=== PATIENT | female | born 2000 | race Caucasian/White ===

== ENCOUNTER 2024-07-23 12:42 | Inpatient (IN) | payer BC, SELFPAY ==
--- NOTE | 2024-07-23 12:43 | MHC.CARE ---
T/W spoke to Luh Valdez (from [facility]) [phone] who called and reported that patient has been increasingly more depressed, hopeless and cannot commit to a safety plan. Luh reported that patient endorsed SI with a plan to drive off road. Patient reportedly had an SI attempt back in 2020 by overdosing on prescription medications. Patient is not currently on any medications. Luh stated that she will fax notes to CARE Team.
--- NOTE | 2024-07-23 12:53 | PC.NURSE ---
Addendum entered by Shantel Perkins 07/23/24 12:59: Pt reports she has been off of her psych medications for approximately 1 year Original Note: Shruti comes in today report SI with multiple plans such as cutting, driving her car off the road,or hitting herself until unconscious. Pt reports past SI attempts including an overdose. She reports there are specific triggers but declines elaborating on them. Pt is calm and cooperative, aware that she is on a S12. She denies any self harming behavior today but reports that she was unable to contract for safety in the health center at school. Offers no complaints at this time, pending med clearance and CARE team eval at this time
[2024-07-23 12:55] VITALS: BP 112/75; BP 115/66; PULSE 66; PULSE 67; RESP 18; TEMP 36.8; O2SAT 98; O2SAT 99; BMI 27.3
[2024-07-23 12:59] VITALS: RESP 16
--- NOTE | 2024-07-23 13:09 | ED.PSYCH ---
HPI - Psych General Chief Complaint: Psychiatric Symptoms Stated Complaint: SEC 12, SI, HEADACHE PER EMS Time Seen by Provider: 07/23/24 13:05 Source: patient and EMS Mode of arrival: EMS Limitations: no limitations History of Present Illness ED Provider: ENDER CERVANTES Narrative: 23 yo female with PMH of anxiety and depression from [facility] who has a therapist not on medications - has SI and is self harming by cutting. Her therapist referred her here. She notes SI and plans to harm herself and reports she is doing fine at [facility]. complaint: suicidal ideation and feels depressed Onset (ago): week(s) (2+) Duration: getting worse History of same: Yes Relieving factors: none Exacerbating factors: other Associated psychiatric symptoms: depression and suicidal ideation Details of plan: cutting, driving car off road, hitting herself in the head Related Data Home Medications ?Medication ?Instructions ?Recorded ?Confirmed No Known Home Meds 07/23/24 07/23/24 Allergies Allergy/AdvReac Type Severity Reaction Status Date / Time mussels Allergy Severe Anaphylaxis Verified 07/23/24 12:58 shellfish derived Allergy Severe Anaphylaxis Verified 07/23/24 12:58 shrimp Allergy Severe Anaphylaxis Verified 07/23/24 12:58 Review of Systems Review of Systems: Constitutional : No Fever, No Chills ENT/Mouth : No Ear Pain, No Nasal Congestion, No sore throat Eyes: No Eye Pain, No Swelling, No Redness Cardiovascular : No Chest Pain, No SOB Respiratory : No Cough, No Sputum, No Dyspnea Gastrointestinal : No Nausea, No Vomiting, No Diarrhea, No Hematochezia, No Melena Genitourinary : No Dysuria, No Urinary Frequency, No Hematuria Musculoskeletal : No Myalgias Skin : No Skin Lesions, No rash Neuro : No Weakness, No Numbness, No Paresthesias, No Dizziness, No Headache Psych : positive Anxiety, positive Depression, positive SI no HI All other systems reviewed and are negative PMFSH Past Medical History Attestation statement: The following information was validated with the patient. Source: old records reviewed Medical History Depression Social History Social History (Updated 07/23/24 @ 13:33 by Linda Flores DO) Patient Tobacco Use Status: Never used Tobacco Smoked in Last 30 Days: No Use of substances other than those prescribed or required for medical reasons: No Advance Directives: No Advance Directives Information Provided: Yes Patient : No Physical Exam Vital Signs: Vital Signs: Last Vital Signs Temp 98.3 F 07/23/24 12:55 Pulse 66 07/23/24 12:55 Resp 16 07/23/24 12:59 BP 115/66 07/23/24 12:55 Pulse Ox 98 07/23/24 12:55 O2 Del Method Room Air 07/23/24 12:55 BMI result Body Mass Index 27.3 Appearance: Alert. Oriented X3. No acute distress. Eyes: Pupils equal, round and reactive to light. ENT: Pharynx normal. Neck: Normal inspection. Neck supple. CVS: Normal heart rate and rhythm. Pulses normal. Respiratory: No respiratory distress. Breath sounds normal. Abdomen: Soft and nontender. Skin: Skin warm and dry. Normal skin color. Normal skin turgor. Extremities: No lower extremity edema. No calf ttp linear abrasions to R arm and L leg - superficial abrasions Neuro: Oriented X 3. No motor deficit. No sensory deficit. CN2-12 intact Medical Decision Making Medical Decision Making [facility] Narrative: 23 yo female with PMH of anxiety and depression here with c/o and SI with many plans to harm herself. She has no medical concerns or complaints. Labs and refer to CARE team. Differential Diagnosis Differential Diagnoses: The differential diagnosis associated with the presentation includes SI, depression, anxiety Admission/Observation Consideration of admission/observation: Escalation of care including admission/observation considered physician observation started at 135pm pending CARE team Consult Healthcare Provider Management of the patient was discussed with: Behavioral Health Provider Lab Data [facility] Lab Attestation statement: I reviewed the patient's lab results. 07/23/24 13:24 07/23/24 13:24 Labs: Lab Results 07/23/24 07/23/24 Range/Units 13:17 13:24 WBC 6.6 (4.8-10.8) X10*3/uL RBC 4.35 (4.20-5.50) X10*6/uL Hgb 13.0 (12.0-16.0) g/dl Hct 38.8 (37.0-47.0) % MCV 89.2 (80.0-98.0) fL MCH 29.9 (27.0-33.0) pg MCHC 33.5 (31.0-35.0) g/dl RDW 13.3 (11.0-16.0) % Plt Count 242 (160-400) X10*3/uL MPV 12.9 H (9.4-12.3) fL Immature Gran % (Auto) 0.5 H (0.0-0.4) % Neut % (Auto) 50.4 (45-73) % Lymph % (Auto) 39.6 (20-40) % [place] % (Auto) 6.5 (2-11) % Eos % (Auto) 1.8 (0-4) % Baso % (Auto) 1.2 (0-2) % Lymph # (Auto) 2.6 (1.2-4.9) X10*3/uL [place] # (Auto) 0.4 (0.1-1.2) X10*3/uL Eos # (Auto) 0.1 (0.0-0.4) X10*3/uL Baso # (Auto) 0.1 (0.0-0.2) X10*3/uL Abs Immat Gran (auto) 0.03 (0.00-0.03) X10*3/uL Absolute Neuts (auto) 3.3 (2.0-8.3) x10*3/uL Absolute Nucleated RBC 0.000 (0.0-0.012) X10*3/uL Nucleated RBC % (auto) 0.0 (0.0-0.2) /100WBC Sodium 139 (135-145) mmol/L Potassium 4.6 (3.3-5.1) mmol/L Chloride 106 (96-108) mmol/L Carbon Dioxide 26 (22-29) mmol/L Anion Gap 12 (12-20) BUN 10 (9-16) mg/dL Creatinine 0.69 (0.5-1.4) mg/dL Estim Creat Clear Calc 107.3 Estimated GFR > 60 Random Glucose 91 (60-115) mg/dL Calcium 9.9 (8.4-10.2) mg/dL Total Bilirubin 0.3 (0.0-1.0) mg/dL AST 23 (5-31) U/L ALT 16 (0-31) U/L Alkaline Phosphatase 65 (39-117) U/L Total Protein 7.3 (6.5-8.0) g/dL Albumin 4.4 (3.5-5.0) g/dL Urine Color Yellow Urine Appearance Clear Urine pH 7.0 (5.0-9.0) Ur Specific [place] 1.010 (1.005-1.025) Urine Protein Negative (Neg-Trace) mg/dL Urine Glucose (UA) Negative (Negative) mg/dL Urine Ketones Negative (Negative) mg/dL Urine Blood Negative (Negative) Urine Nitrite Negative (Negative) Ur Leukocyte Esterase Negative (Negative) Urine Test NEGATIVE (NEGATIVE) Urine Opiates Screen Not Detected (Not Detect) Ur Buprenorphine Scrn Not Detected (Not Detect) ng/mL Ur Oxycodone Screen Not Detected (Not Detect) ng/mL Urine Methadone Screen Not Detected (Not Detect) ng/mL Urine Fentanyl Screen Not Detected (Not Detect) Ur Barbiturates Screen Not Detected (Not Detect) Ur Phencyclidine Scrn Not Detected (Not Detect) Ur Amphetamines Screen Not Detected (Not Detect) U Benzodiazepines Scrn Not Detected (Not Detect) Urine Cocaine Screen Not Detected (Not Detect) U Marijuana (THC) Screen Not Detected (Not Detect) Ethyl Alcohol < 10 mg/dL Independent Historian Clinical information obtained from an independent historian. History obtained from or confirmed by: EMS Discharge Plan Discharge Clinical Impression: Suicidal ideation Patient Disposition: Still a Patient Prescriptions: No Action No Known Home Meds Interventions: [place]-Suicide Risk Severity Scale Last Done: 07/23/24 13:00 Print Language: Occitan
[2024-07-23 13:33] LABS: MANUAL DIFF FLAG NO
[2024-07-23 13:35] LABS: Basophils Absolute Auto 0.1 X10*3/uL (0.0-0.2); Basophils Percent Auto 1.2 % (0-2); Eosinophils Absolute Auto 0.1 X10*3/uL (0.0-0.4); Eosinophils Percent Auto 1.8 % (0-4); Hematocrit 38.8 % (37.0-47.0); Imm Gran Abs Auto 0.03 X10*3/uL (0.00-0.03); Imm Gran Pct Auto 0.5 % (0.0-0.4); Lymphocytes Absolute Auto 2.6 X10*3/uL (1.2-4.9); Lymphocytes Percent Auto 39.6 % (20-40); Mean Corpuscular HGB Conc 33.5 g/dl (31.0-35.0); Mean Corpuscular Hemoglobin 29.9 pg (27.0-33.0); Mean Corpuscular Volume 89.2 fL (80.0-98.0); Mean Platelet Volume 12.9 fL (9.4-12.3); Monocytes Absolute Auto 0.4 X10*3/uL (0.1-1.2); Monocytes Percent Auto 6.5 % (2-11); Neutrophils Absolute Auto 3.3 x10*3/uL (2.0-8.3); Neutrophils Percent Auto 50.4 % (45-73); Platelet Count 242 X10*3/uL (160-400); Red Blood Count 4.35 X10*6/uL (4.20-5.50); Red Cell Distribution Width 13.3 % (11.0-16.0); White Blood Count 6.6 X10*3/uL (4.8-10.8)
[2024-07-23 13:38] LABS: Appearance Urine Clear; Color Urine Yellow; Glucose Urine UA Negative (Negative); Leukocyte Esterase Urine Negative (Negative); Nitrite Urine Negative (Negative); Urine Blood Negative (Negative); Urine Ketones Negative (Negative); Urine Protein Negative (Neg-Trace)
[2024-07-23 13:39] LABS: UPreg QC Valid YES; Urine Pregnancy NEGATIVE (NEGATIVE)
[2024-07-23 13:47] LABS: Amphetamine Screen Urine Not Detected (Not Detect); Barbiturates, Urine Not Detected (Not Detect); Benzodiazepines Screen Urine Not Detected (Not Detect); Buprenorphine Scr Not Detected (Not Detect); Cannabinoid Screen Urine Not Detected (Not Detect); Cocaine Screen Urine Not Detected (Not Detect); Fentanyl, urine Not Detected (Not Detect); Methadone Screen, Urine Not Detected (Not Detect); Opiate Screen Urine Not Detected (Not Detect); Oxycodone Screen Urine Not Detected (Not Detect); Phencyclidine Screen Urine Not Detected (Not Detect)
[2024-07-23 13:52] LABS: Alanine Aminotransferase 16 U/L (0-31); Albumin Level 4.4 g/dL (3.5-5.0); Anion Gap 12 (12-20); Aspartate Amino Transferase 23 U/L (5-31); Bilirubin Total 0.3 mg/dL (0.0-1.0); Blood Urea Nitrogen 10 mg/dL (9-16); Calcium 9.9 mg/dL (8.4-10.2); Carbon Dioxide 26 mmol/L (22-29); Chloride 106 mmol/L (96-108); Creatinine Clr Calc Pharmacy 107.3; Estimated Glomerular Filt Rate > 60; Ethanol < 10 mg/dL; Glucose Random 91 mg/dL (60-115); Potassium 4.6 mmol/L (3.3-5.1); Sodium 139 mmol/L (135-145); Total Protein 7.3 g/dL (6.5-8.0)
[2024-07-23 14:07] LABS: Alkaline Phosphatase 65 U/L (39-117)
--- NOTE | 2024-07-23 14:28 | MHC.CARE ---
Per Luh Valdez with [facility], , available before 4p. Student has [facility]'s student insurance [employer] policy [id number].
--- NOTE | 2024-07-23 18:16 | PC.NURSE ---
Pts boyfriend visiting at bedside. ISELA Dugan reminded patient to maintain appropirate boundaries as patient was sitting on bed with bf. Pt moved to chair and bf sat on bed. Both parties respectful and agreeable
[2024-07-23 19:32] VITALS: BP 115/61; PULSE 76; RESP 18; TEMP 36.9; O2SAT 99
--- NOTE | 2024-07-23 21:53 | PC.NURSE ---
Nurse to nurse given to m5 RN
[2024-07-23] MEDS: Acetaminophen 325 MG TABLET 650 MG PO (23:55)
--- NOTE | 2024-07-24 06:27 | PC.ADMIT ---
Shruti is a 23 year old female college who was admitted to at 2245 on 07/23/24. She is a CV on 15 minute checks. She reported SI, and has self injurious behaviors. Skin/safety check revealed 5 superficial scabbed cuts on her left upper arm, and 9 superficial scabbed cuts on the lateral aspect of her upper right thigh. Shruti reports she cut herself using a shaving razor. Shruti overdosed on prescribed medication in 2020. She has no home medications, and reports she has been off medications for 1 year. There is an addiction consult pending regarding her alcohol consumption. Shruti reports that while she drinks less than monthly, when she does drink, she will binge over 10 drinks. She is a non-smoker. She has refused a flu vaccine. Shruti reports self neglect and states she does not eat properly/enough. She seems to have limited insight, but does state that she wants to 'get better.' She is pleasant, nervous, shy, and quiet during admission.
[2024-07-24 07:00] VITALS: BMI 29.9
[2024-07-24 08:00] VITALS: BP 114/65; PULSE 66; RESP 16; TEMP 35.9; O2SAT 99
[2024-07-24] MEDS: Acetaminophen 325 MG TABLET 650 MG PO ×2 (08:25→18:21)
[2024-07-24] MEDS: hydrOXYzine HCL 25 MG TABLET PO (08:28)
--- NOTE | 2024-07-24 12:24 | P.HPPS_ITS ---
HPI Date of Service: 07/24/24 Chief Complaint: SI Sources of Information: patient interviewed, chart reviewed and crisis/core team assessment reviewed HPI Subjective Notes: Goodman Warning and Conditional Voluntary Narrative: Patient is a 23-year-old female with history of MDD, MARY ALICE and PTSD who presented to [facility] via ambulance from [facility] due to suicidal ideation secondary to life stressors. Per crisis report, patient endorsed suicidal ideation with plan to her therapist. Patient had several plans such as, driving off the road, cutting herself or hitting herself until she is unconscious. Patient has been experiencing increased anxiety and depression; reports feeling numb all the time , crying at times and does not know why. Patient reports doing well in school however. not achieving the grades that she would like. poor sleep/poor appetite. Patient reported she recently started cutting herself again which she had not done since she was a teenager. Patient sees her outpatient therapist every 2 weeks. Denies HI/VH/AH. History of attempted suicide in 2020 by overdosing on her prescription medication; did not go to the hospital after that event. Denies substance use. Utox negative. Care team obtained collateral from patient's mother, who reported, pt had moved to [place] from [facility] approximately 4 years ago. Mother reports within the past year patient has been making herself pass out due to anxiety. History of being bullied when she was 15 years old and began cutting herself. No history of psychiatric admissions. During admission assessment, patient presents alert and oriented x3. Calm and cooperative. Patient reports feeling depressed and anxious ; patient stated, I'm having feelings of wanting to hurt myself. I need to feel something. I was cutting for 2 days in a row and the 3rd day I came here . Patient reports she has been feeling numb for the past few weeks and she can not think of a precipitant. She reports suicidal ideation with plan to overdose on medications. Sees therapist through [facility] but is currently not on any psychiatric medications. Patient reports history of taking something for anxiety when she was 20 but can not recall name of medication. However, in 2020 she did overdose on this medication and woke up the next morning but did not tell anyone. Patient reports that she is happy she did not from that attempt. History of cutting from the ages of [age]; Patient reports superficial cuts and never required stitches. She states that she does not go to the dining [employer] more than once a day due to feeling anxious from being around people. She is requesting to be started on medications to help with her mood. Discussed Prozac; risks/benefits reviewed; patient agreed to trial. Past Psychiatric History: No history of inpatient psychiatric admissions. History of superficial cutting. history of suicide attempt in 2020 via overdose on her prescription medication. therapist through [facility]. Medical Evaluation Reviewed: Yes [facility] Medical History Depression Family History: mother: depression sister: depression Social History: lives on campus in a single dorm room at [facility]. Full-time student, economics major. Single. No kids. [place] Substance History: Denies. Trauma History: Yes Diagnostics Vital Signs (24Hr): Vital Signs - 24 hr 07/23/24 12:55 07/23/24 12:59 07/23/24 19:32 Temperature 98.3 F 98.4 F Pulse Rate 66 76 Respiratory Rate 18 16 18 Blood Pressure 115/66 115/61 Pulse Oximetry 98 99 Oxygen Delivery Method Room Air Room Air 07/24/24 08:00 Temperature 96.6 F L Pulse Rate 66 Respiratory Rate 16 Blood Pressure 114/65 Pulse Oximetry 99 Oxygen Delivery Method Room Air BMI result Body Mass Index 27.3 Labs 07/23/24 13:24 07/24/24 11:26 Labs: Laboratory Results - last 48 hr 07/23/24 07/23/24 13:17 13:24 WBC 6.6 RBC 4.35 Hgb 13.0 Hct 38.8 MCV 89.2 MCH 29.9 MCHC 33.5 RDW 13.3 Plt Count 242 MPV 12.9 H Immature Gran % (Auto) 0.5 H Neut % (Auto) 50.4 Lymph % (Auto) 39.6 [place]w % (Auto) 6.5 Eos % (Auto) 1.8 Baso % (Auto) 1.2 Lymph # (Auto) 2.6 [place]th[place]omew # (Auto) 0.4 Eos # (Auto) 0.1 Baso # (Auto) 0.1 Abs Immat Gran (auto) 0.03 Absolute Neuts (auto) 3.3 Absolute Nucleated RBC 0.000 Nucleated RBC % (auto) 0.0 Sodium 139 Potassium 4.6 Chloride 106 Carbon Dioxide 26 Anion Gap 12 BUN 10 Creatinine 0.69 Estim Creat Clear Calc 107.3 Estimated GFR > 60 Random Glucose 91 Calcium 9.9 Total Bilirubin 0.3 AST 23 ALT 16 Alkaline Phosphatase 65 Total Protein 7.3 Albumin 4.4 Urine Color Yellow Urine Appearance Clear Urine pH 7.0 Ur Specific [place] 1.010 Urine Protein Negative Urine Glucose (UA) Negative Urine Ketones Negative Urine Blood Negative Urine Nitrite Negative Ur Leukocyte Esterase Negative Urine Test NEGATIVE Urine Opiates Screen Not Detected Ur Buprenorphine Scrn Not Detected Ur Oxycodone Screen Not Detected Urine Methadone Screen Not Detected Urine Fentanyl Screen Not Detected Ur Barbiturates Screen Not Detected Ur Phencyclidine Scrn Not Detected Ur Amphetamines Screen Not Detected U Benzodiazepines Scrn Not Detected Urine Cocaine Screen Not Detected U Marijuana (THC) Screen Not Detected Ethyl Alcohol < 10 Meds/Allergies Meds Home Medications ?Medication ?Instructions ?Recorded ?Confirmed ?Type No Known Home Meds 07/23/24 07/23/24 History Allergies Allergies Allergy/AdvReac Type Severity Reaction Status Date / Time mussels Allergy Severe Anaphylaxis Verified 07/23/24 12:58 shellfish derived Allergy Severe Anaphylaxis Verified 07/23/24 12:58 shrimp Allergy Severe Anaphylaxis Verified 07/23/24 12:58 Mental Status Exam Mental Status Exam Narrative: Pt is alert and oriented; behavior is cooperative, calm; dressed in casual attire; mood is described as depressed and numb ; eye contact appropriate; Speech is normal rate, low volume and not pressured; thought process is organized and goal directed; Thought content is on tx; otherwise pertinent to relevant topics and without any delusional content, paranoid ideations or grandiosity; denies HI/VH/AH. patient reports suicidal ideation with plan to overdose on medication. Assessment & Plan Assessment & Plan (1) MDD (major depressive disorder), recurrent episode, severe: Status: Acute Code(s): F33.2 - Major depressive disorder, recurrent severe without psychotic features (2) MARY ALICE (generalized anxiety disorder): Status: Acute Code(s): F41.1 - Generalized anxiety disorder (3) PTSD (post-traumatic stress disorder): Status: Acute Code(s): F43.10 - Post-traumatic stress disorder, unspecified Plan Patient is a 23-year-old female with history of MDD, MARY ALICE and PTSD who presented to [facility] via ambulance from [facility] due to suicidal ideation secondary to life stressors. Plan: CV 15 minute safety checks obtain collateral encourage groups start: Prozac 20mg PO daily referral to outpatient psychiatric prescriber discharge planning Patient educated on: diagnosis, medication risk/benefits and therapeutic strategies Reason for continued inpatient stay Substantial Risk for: harm to self and med/psych decompensation Statement Statement: I have reviewed the history and physical and performed a pertinent examination on my patient. No changes have occurred unless specified. If the History and Physical was not performed prior to admission, the Hospitalist's service will be consulted for completing the admission physical. Time Spent With Patient Time: Total time managing care of this patient today _60___ minutes.
[2024-07-24 12:27] LABS: Alanine Aminotransferase 20 U/L (0-31); Albumin Level 4.3 g/dL (3.5-5.0); Alkaline Phosphatase 68 U/L (39-117); Anion Gap 11 (12-20); Aspartate Amino Transferase 27 U/L (5-31); Bilirubin Total 0.2 mg/dL (0.0-1.0); Blood Urea Nitrogen 13 mg/dL (9-16); Calcium 10.2 mg/dL (8.4-10.2); Carbon Dioxide 26 mmol/L (22-29); Chloride 106 mmol/L (96-108); Cholesterol 151 mg/dL (<200); Creatinine Clr Calc Pharmacy 102.8; Estimated Glomerular Filt Rate > 60; Glucose Fasting 98 mg/dL (60-99); HDL Cholesterol 51 mg/dL (>40); LDL Cholesterol Calculated 82 mg/dL (<100); Potassium 4.1 mmol/L (3.3-5.1); Sodium 139 mmol/L (135-145); Triglycerides 94 mg/dL (<150)
[2024-07-24 12:41] LABS: Thyroid Stimulating Hormone 1.24 uIU/mL (0.32-4.0)
[2024-07-24] MEDS: FLUoxetine HCl 20 MG CAPSULE PO (16:02)
[2024-07-24 20:00] VITALS: BP 124/64; PULSE 74; TEMP 36.8; O2SAT 99
[2024-07-25 08:00] VITALS: BP 114/62; PULSE 73; RESP 16; TEMP 37.3; O2SAT 99
[2024-07-25] MEDS: FLUoxetine HCl 20 MG CAPSULE PO (08:26)
[2024-07-25] MEDS: hydrOXYzine HCL 25 MG TABLET PO (08:37)
[2024-07-25] MEDS: OXcarbazepine 300 MG TABLET PO ×2 (12:21→21:42)
--- NOTE | 2024-07-25 12:49 | HO.PSYCHPN ---
Subjective Subjective Date of Service: 07/25/24 Reason For Visit: SI Subjective Notes: Conditional Voluntary Healthcare Proxy: No Guardianship: No Medical Problems Affecting Mental Status: No Interim History: Reports no anxiety yesterday, today however feels an increase in anxiety, poor sleep, increase in dreaming. Describes sx of sleep paralysis last night. Several issues of concern. Partner, Darron is very concerned, pt reports his niece suicided last year and his uncle suicided a few years ago. He is concerned for her safety. She denies active SI however is very anxious about her grades (has a B average she reports). 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 She is also concerned about her status of immigration. She will attend court in 2024 to work on this issue. Describes three years of psychotherapy, 2 months in person, before this on line. Med trial at age 20 with ?antidepressants and extreme mood reactions. Before meds she reports feeling numb, after meds difficult to regulate. Hx of OD on medds as well. Initially she finds meds make her calm, then the after effects make her angry. Reports hx of panic, reports conflict with her younger sister. Discussed mood stabilizer trial (Prozac initiated 07/24). She is in agreement. Discussed concerns about family and how her admission will be interpreted by the family. Medication Compliance: Yes Side effects from medications: No Attending Groups: No Review of Systems Acute medical concerns: No Review of Systems Review of Systems denies Mental Status Exam Mental Status Exam Patient Appearance: Appropriate Patient Orientation: Person, Place, Time and Situation Level of Consciousness: Alert Patient Behavior: Appropriate, Talkative, Cooperative and Good Eye Contact Mood Description: Depressed, Anxious and Apprehensive Affect Description: Anxious Patient Cognition Impaired: No Ability to Follow Directions: Good Speech Pattern: Spontaneous Speech Memory Description: Intact Hallucinations: None Delusions: Not Present Thought Process: Rumination Thought Content: positive for Circumstantial, positive for Perseveration and positive for Suicidal Ideation Depressive Symptoms: Increased Anxiety, Insomnia, Difficulty Sleeping, Thoughts of /Suicide and Low Self Esteem Abnormal Motor Activity Signs and Symptoms: Restlessness Judgement: Fair Diagnostics Vital Signs (24Hr): Vital Signs - 24 hr 07/24/24 20:00 07/25/24 08:00 Temperature 98.3 F 99.1 F Pulse Rate 74 73 Respiratory Rate 16 Blood Pressure 124/64 114/62 Pulse Oximetry 99 99 Oxygen Delivery Method Room Air Room Air BMI result Body Mass Index 29.9 Labs 07/23/24 13:24 07/24/24 11:26 Labs: Laboratory Results - last 48 hr 07/23/24 07/23/24 07/24/24 13:17 13:24 11:26 WBC 6.6 RBC 4.35 Hgb 13.0 Hct 38.8 MCV 89.2 MCH 29.9 MCHC 33.5 RDW 13.3 Plt Count 242 MPV 12.9 H Immature Gran % (Auto) 0.5 H Neut % (Auto) 50.4 Lymph % (Auto) 39.6 Ector % (Auto) 6.5 Eos % (Auto) 1.8 Baso % (Auto) 1.2 Lymph # (Auto) 2.6 Ector # (Auto) 0.4 Eos # (Auto) 0.1 Baso # (Auto) 0.1 Abs Immat Gran (auto) 0.03 Absolute Neuts (auto) 3.3 Absolute Nucleated RBC 0.000 Nucleated RBC % (auto) 0.0 Sodium 139 139 Potassium 4.6 4.1 Chloride 106 106 Carbon Dioxide 26 26 Anion Gap 12 11 L BUN 10 13 Creatinine 0.69 0.72 Estim Creat Clear Calc 107.3 102.8 Estimated GFR > 60 > 60 Random Glucose 91 Fasting Glucose 98 Calcium 9.9 10.2 Total Bilirubin 0.3 0.2 AST 23 27 ALT 16 20 Alkaline Phosphatase 65 68 Total Protein 7.3 7.0 Albumin 4.4 4.3 Triglycerides 94 Cholesterol 151 LDL Cholesterol, Calc 82 HDL Cholesterol 51 TSH 1.24 Urine Color Yellow Urine Appearance Clear Urine pH 7.0 Ur Specific [place] 1.010 Urine Protein Negative Urine Glucose (UA) Negative Urine Ketones Negative Urine Blood Negative Urine Nitrite Negative Ur Leukocyte Esterase Negative Urine Test NEGATIVE Urine Opiates Screen Not Detected Ur Buprenorphine Scrn Not Detected Ur Oxycodone Screen Not Detected Urine Methadone Screen Not Detected Urine Fentanyl Screen Not Detected Ur Barbiturates Screen Not Detected Ur Phencyclidine Scrn Not Detected Ur Amphetamines Screen Not Detected U Benzodiazepines Scrn Not Detected Urine Cocaine Screen Not Detected U Marijuana (THC) Screen Not Detected Ethyl Alcohol < 10 Medications Medications Current Medications Acetaminophen (Acetaminophen 325 Mg Tablet) 650 mg PO Q6H PRN PRN Reason: Headache/Pain Mild Scale (1-3) Last Admin: 07/24/24 18:21 Dose: 650 mg Al Hydroxide/Mg Hydroxide (Magnesium Hydrox/Alum Hydrox 30 Ml Oral.Susp) 30 ml PO Q6H PRN PRN Reason: Heartburn/Nausea Fluoxetine HCl (Fluoxetine Hcl 20 Mg Capsule) 20 mg PO DAILY [facility] Last Admin: 07/25/24 08:26 Dose: 20 mg Hydroxyzine HCl (Hydroxyzine Hcl 25 Mg Tablet) 25 mg PO Q6H PRN PRN Reason: Anxiety Last Admin: 07/25/24 08:37 Dose: 25 mg Lorazepam (Lorazepam 0.5 Mg Tablet) 0.5 mg PO Q8H PRN PRN Reason: Anxiety Magnesium Hydroxide (Milk Of Magnesia 30 Ml Oral.Susp) 30 ml PO DAILY PRN PRN Reason: Constipation Melatonin (Melatonin 3 Mg Tablet) 3 mg PO BEDTIME PRN PRN Reason: Insomnia Nicotine Polacrilex (Nicotine Polacrilex 2 Mg Gum) 2 mg BUCCAL Q2H PRN PRN Reason: Nicotine Cravings Oxcarbazepine (Oxcarbazepine 300 Mg Tablet) 300 mg PO BID [facility] Last Admin: 07/25/24 12:21 Dose: 300 mg Trazodone HCl (Trazodone Hcl 50 Mg Tablet) 50 mg PO BEDTIME MRX1 PRN PRN Reason: Insomnia Allergies Allergies Allergy/AdvReac Type Severity Reaction Status Date / Time mussels Allergy Severe Anaphylaxis Verified 07/23/24 12:58 shellfish derived Allergy Severe Anaphylaxis Verified 07/23/24 12:58 shrimp Allergy Severe Anaphylaxis Verified 07/23/24 12:58 Assessment & Plan Assessment & Plan (1) MDD (major depressive disorder), recurrent episode, severe: Status: Acute Code(s): F33.2 - Major depressive disorder, recurrent severe without psychotic features (2) MARY ALICE (generalized anxiety disorder): Status: Acute Code(s): F41.1 - Generalized anxiety disorder (3) PTSD (post-traumatic stress disorder): Status: Acute Code(s): F43.10 - Post-traumatic stress disorder, unspecified Plan Patient is a 23-year-old female with history of MDD, MARY ALICE and PTSD who presented to [facility] via ambulance from [facility] due to suicidal ideation secondary to life stressors. Plan: CV 15 minute safety checks obtain collateral encourage groups start: Prozac 20mg PO daily referral to outpatient psychiatric prescriber discharge planning 07/25/24: Trileptal 300 mg bid Lorazepam prn for panic Reason for continued inpatient stay Substantial Risk for: rapid decompensation Time Spent With Patient Time: Total time managing care of this patient today ____ minutes.
[2024-07-25 20:00] VITALS: BP 118/70; PULSE 72; RESP 16; TEMP 36.2; O2SAT 99
[2024-07-26 08:57] VITALS: BP 114/57; PULSE 70; RESP 16; TEMP 37.1; O2SAT 98
[2024-07-26] MEDS: FLUoxetine HCl 20 MG CAPSULE PO (09:44)
[2024-07-26] MEDS: OXcarbazepine 300 MG TABLET PO ×2 (09:44→20:55)
[2024-07-26] MEDS: Acetaminophen 325 MG TABLET 650 MG PO (10:44)
--- NOTE | 2024-07-26 16:47 | HO.PSYCHPN ---
Subjective Subjective Date of Service: 07/26/24 Reason For Visit: SI Subjective Notes: Conditional Voluntary Healthcare Proxy: No Guardianship: No Medical Problems Affecting Mental Status: No Interim History: 23 yo from [place] [facility] with suicidal thinking doing a bit better on trileptal and fluoxetine- slept- energy still low- close visits with family who wait outside - had to wait to see patient between visitors ( ? bf male visitor) nursing reports in bed in pm less engaged than during day anxious and slept - there is alot of actively psychotic patients on floor and pt first psychiatric hospitalization which could explain retreat to room in pms Medication Compliance: Yes Side effects from medications: No Attending Groups: Intermittent Review of Systems Acute medical concerns: No Medical Review of Systems: unchanged Mental Status Exam Mental Status Exam Patient Appearance: Well Grooomed (though dressed in gonzález despite family visiting could get clothes?) Patient Orientation: Person, Place, Time and Situation Level of Consciousness: Awake Patient Behavior: Appropriate, Guarded (slightly), Cooperative and Good Eye Contact Mood Description: Anxious Affect Description: Blunted Patient Cognition Impaired: No Ability to Follow Directions: Good Speech Pattern: Clear Hallucinations: None Delusions: Not Present Thought Process: Intact Thought Content: positive for Goal Oriented and positive for Suicidal Ideation (decreased on current medication combo) Judgement: Fair Diagnostics Vital Signs (24Hr): Vital Signs - 24 hr 07/25/24 20:00 07/26/24 08:57 Temperature 97.2 F 98.7 F Pulse Rate 72 70 Respiratory Rate 16 16 Blood Pressure 118/70 114/57 L Pulse Oximetry 99 98 Oxygen Delivery Method Room Air Room Air BMI result Body Mass Index 29.9 Labs 07/23/24 13:24 07/24/24 11:26 Medications Medications Current Medications Acetaminophen (Acetaminophen 325 Mg Tablet) 650 mg PO Q6H PRN PRN Reason: Headache/Pain Mild Scale (1-3) Last Admin: 07/26/24 10:44 Dose: 650 mg Al Hydroxide/Mg Hydroxide (Magnesium Hydrox/Alum Hydrox 30 Ml Oral.Susp) 30 ml PO Q6H PRN PRN Reason: Heartburn/Nausea Fluoxetine HCl (Fluoxetine Hcl 20 Mg Capsule) 20 mg PO DAILY [facility] Last Admin: 07/26/24 09:44 Dose: 20 mg Hydroxyzine HCl (Hydroxyzine Hcl 25 Mg Tablet) 25 mg PO Q6H PRN PRN Reason: Anxiety Last Admin: 07/25/24 08:37 Dose: 25 mg Lorazepam (Lorazepam 0.5 Mg Tablet) 0.5 mg PO Q8H PRN PRN Reason: Anxiety Magnesium Hydroxide (Milk Of Magnesia 30 Ml Oral.Susp) 30 ml PO DAILY PRN PRN Reason: Constipation Melatonin (Melatonin 3 Mg Tablet) 3 mg PO BEDTIME PRN PRN Reason: Insomnia Nicotine Polacrilex (Nicotine Polacrilex 2 Mg Gum) 2 mg BUCCAL Q2H PRN PRN Reason: Nicotine Cravings Oxcarbazepine (Oxcarbazepine 300 Mg Tablet) 300 mg PO BID [facility] Last Admin: 07/26/24 09:44 Dose: 300 mg Trazodone HCl (Trazodone Hcl 50 Mg Tablet) 50 mg PO BEDTIME MRX1 PRN PRN Reason: Insomnia Allergies Allergies Allergy/AdvReac Type Severity Reaction Status Date / Time mussels Allergy Severe Anaphylaxis Verified 07/23/24 12:58 shellfish derived Allergy Severe Anaphylaxis Verified 07/23/24 12:58 shrimp Allergy Severe Anaphylaxis Verified 07/23/24 12:58 Assessment & Plan Assessment & Plan (1) MDD (major depressive disorder), recurrent episode, severe: Status: Acute Code(s): F33.2 - Major depressive disorder, recurrent severe without psychotic features (2) MARY ALICE (generalized anxiety disorder): Status: Acute Code(s): F41.1 - Generalized anxiety disorder (3) PTSD (post-traumatic stress disorder): Status: Acute Code(s): F43.10 - Post-traumatic stress disorder, unspecified Plan Patient is a 23-year-old female with history of MDD, MARY ALICE and PTSD who presented to [facility] via ambulance from [facility] due to suicidal ideation secondary to life stressors. Plan: CV 15 minute safety checks obtain collateral encourage groups start: Prozac 20mg PO daily referral to outpatient psychiatric prescriber discharge planning 07/25/24: Trileptal 300 mg bid Lorazepam prn for panic 07/26/24 not having panic- feels trileptal helping no side effects- understands it is a mood stabilizer- Patient educated on: medication risk/benefits and therapeutic strategies Informed Consent: understands and further education needed Reason for continued inpatient stay Substantial Risk for: harm to self and rapid decompensation Time Spent With Patient Time: Total time managing care of this patient today ____ minutes.
[2024-07-26 20:00] VITALS: BP 115/67; PULSE 76; RESP 16; TEMP 37.2; O2SAT 99
[2024-07-26] MEDS: traZODone HCL 50 MG TABLET PO (20:55)
[2024-07-27 08:41] VITALS: BP 122/63; PULSE 62; RESP 16; TEMP 37.3; O2SAT 99
[2024-07-27] MEDS: OXcarbazepine 300 MG TABLET PO ×2 (09:28→21:37)
[2024-07-27] MEDS: FLUoxetine HCl 20 MG CAPSULE PO (09:28)
--- NOTE | 2024-07-27 12:04 | HO.PSYCHPN ---
Subjective Subjective Date of Service: 07/27/24 Reason For Visit: SI Subjective Notes: Conditional Voluntary Healthcare Proxy: No Guardianship: No Medical Problems Affecting Mental Status: No Interim History: 23 yo continues with family visits, feels improving day by day- no si today nor sib thoughts- Slept, finding mood stabilizer helpful - nursing report- taking medications and I noted from prior pt in room due to other patients agitated behaviors- (not directed at pt but certainly intimidating) Reports has counselor at [facility] but no prescriber- Medication Compliance: Yes Side effects from medications: No Attending Groups: Intermittent Review of Systems Acute medical concerns: No Medical Review of Systems: unchanged Mental Status Exam Mental Status Exam Patient Appearance: Well Grooomed (but again still in gonzález?) Patient Orientation: Person, Place, Time and Situation Level of Consciousness: Awake Patient Behavior: Appropriate, Cooperative and Good Eye Contact Mood Description: Apprehensive (more cautious) Patient Cognition Impaired: No Ability to Follow Directions: Good Speech Pattern: Clear Hallucinations: None Delusions: Not Present Thought Process: Intact and Goal Oriented Thought Content: positive for Suicidal Ideation (decreased - none today !) Depressive Symptoms: Increased Anxiety (improving on trileptal) and Unhappiness Judgement: Fair Diagnostics Vital Signs (24Hr): Vital Signs - 24 hr 07/26/24 20:00 07/27/24 08:41 Temperature 98.9 F 99.1 F Pulse Rate 76 62 Respiratory Rate 16 16 Blood Pressure 115/67 122/63 Pulse Oximetry 99 99 Oxygen Delivery Method Room Air Room Air BMI result Body Mass Index 29.9 Labs 07/23/24 13:24 07/24/24 11:26 Labs: sodium 139 good to note on trileptal due to risk of hyponatremia Medications Medications Current Medications Acetaminophen (Acetaminophen 325 Mg Tablet) 650 mg PO Q6H PRN PRN Reason: Headache/Pain Mild Scale (1-3) Last Admin: 07/26/24 10:44 Dose: 650 mg Al Hydroxide/Mg Hydroxide (Magnesium Hydrox/Alum Hydrox 30 Ml Oral.Susp) 30 ml PO Q6H PRN PRN Reason: Heartburn/Nausea Fluoxetine HCl (Fluoxetine Hcl 20 Mg Capsule) 20 mg PO DAILY [facility] Last Admin: 07/27/24 09:28 Dose: 20 mg Hydroxyzine HCl (Hydroxyzine Hcl 25 Mg Tablet) 25 mg PO Q6H PRN PRN Reason: Anxiety Last Admin: 07/25/24 08:37 Dose: 25 mg Lorazepam (Lorazepam 0.5 Mg Tablet) 0.5 mg PO Q8H PRN PRN Reason: Anxiety Magnesium Hydroxide (Milk Of Magnesia 30 Ml Oral.Susp) 30 ml PO DAILY PRN PRN Reason: Constipation Melatonin (Melatonin 3 Mg Tablet) 3 mg PO BEDTIME PRN PRN Reason: Insomnia Nicotine Polacrilex (Nicotine Polacrilex 2 Mg Gum) 2 mg BUCCAL Q2H PRN PRN Reason: Nicotine Cravings Oxcarbazepine (Oxcarbazepine 300 Mg Tablet) 300 mg PO BID [facility] Last Admin: 07/27/24 09:28 Dose: 300 mg Trazodone HCl (Trazodone Hcl 50 Mg Tablet) 50 mg PO BEDTIME MRX1 [facility] Last Admin: 07/27/24 04:18 Dose: Not Given Allergies Allergies Allergy/AdvReac Type Severity Reaction Status Date / Time mussels Allergy Severe Anaphylaxis Verified 07/23/24 12:58 shellfish derived Allergy Severe Anaphylaxis Verified 07/23/24 12:58 shrimp Allergy Severe Anaphylaxis Verified 07/23/24 12:58 Assessment & Plan Assessment & Plan (1) MDD (major depressive disorder), recurrent episode, severe: Status: Acute Code(s): F33.2 - Major depressive disorder, recurrent severe without psychotic features (2) MARY ALICE (generalized anxiety disorder): Status: Acute Code(s): F41.1 - Generalized anxiety disorder (3) PTSD (post-traumatic stress disorder): Status: Acute Code(s): F43.10 - Post-traumatic stress disorder, unspecified Plan Patient is a 23-year-old female with history of MDD, MARY ALICE and PTSD who presented to [facility] via ambulance from [facility] due to suicidal ideation secondary to life stressors. Plan: CV 15 minute safety checks obtain collateral encourage groups start: Prozac 20mg PO daily referral to outpatient psychiatric prescriber discharge planning 07/25/24: Trileptal 300 mg bid Lorazepam prn for panic 07/26/24 not having panic- feels trileptal helping no side effects- understands it is a mood stabilizer- Patient educated on: medication risk/benefits and therapeutic strategies 07/27- continue current plan- tolerating medications- work on discharge planning upcoming week - Patient educated on: medication risk/benefits and therapeutic strategies Informed Consent: understands Reason for continued inpatient stay Substantial Risk for: rapid decompensation (needs dc planning ) Time Spent With Patient Time: Total time managing care of this patient today ____ minutes.
[2024-07-27 19:41] VITALS: BP 111/60; PULSE 70; RESP 16; TEMP 36.8; O2SAT 100
[2024-07-27] MEDS: traZODone HCL 50 MG TABLET PO (21:37)
[2024-07-28 08:00] VITALS: BP 121/62; PULSE 75; RESP 16; TEMP 36.8; O2SAT 99
[2024-07-28] MEDS: FLUoxetine HCl 20 MG CAPSULE PO (08:50)
[2024-07-28] MEDS: OXcarbazepine 300 MG TABLET PO ×2 (08:50→21:06)
[2024-07-28] MEDS: Acetaminophen 325 MG TABLET 650 MG PO (08:52)
--- NOTE | 2024-07-28 15:44 | HO.PSYCHPN ---
Subjective Subjective Date of Service: 07/28/24 Reason For Visit: SI Subjective Notes: Conditional Voluntary Healthcare Proxy: No Guardianship: No Medical Problems Affecting Mental Status: No Interim History: Denies SI,HI, AH, VH. Reviewed mom's visit, she cries because I am in hospital. Reports tension headache with relief from Tylenol, Discussed continuing to monitor this as her medicines may help relieve this (reports headache frequently prior to medication initiation). Hopes to have weekly therapy. Tolerating meds she reports, some brief sx nausea which has resolved. Discussed taking meds after food, never on an empty stomach, she agrees. Plans discharge for 07/30. Medication Compliance: Yes Side effects from medications: No Attending Groups: No Review of Systems Acute medical concerns: No Medical Review of Systems: unchanged Mental Status Exam Mental Status Exam Narrative: Alert, oriented. Speech is clear, articulate, soft. Well engaged in discussion. Clear regarding stressors and coping mechanisms. Affect is flat, mood apprehensive. No sx of thought dysregulation Denies DANAE,CELSO,DARÍO, VH Diagnostics Vital Signs (24Hr): Vital Signs - 24 hr 07/27/24 19:41 07/28/24 08:00 Temperature 98.2 F 98.2 F Pulse Rate 70 75 Respiratory Rate 16 16 Blood Pressure 111/60 121/62 Pulse Oximetry 100 99 Oxygen Delivery Method Room Air Room Air BMI result Body Mass Index 29.9 Labs 07/23/24 13:24 07/24/24 11:26 Medications Medications Current Medications Acetaminophen (Acetaminophen 325 Mg Tablet) 650 mg PO Q6H PRN PRN Reason: Headache/Pain Mild Scale (1-3) Last Admin: 07/28/24 08:52 Dose: 650 mg Al Hydroxide/Mg Hydroxide (Magnesium Hydrox/Alum Hydrox 30 Ml Oral.Susp) 30 ml PO Q6H PRN PRN Reason: Heartburn/Nausea Fluoxetine HCl (Fluoxetine Hcl 20 Mg Capsule) 20 mg PO DAILY [facility] Last Admin: 07/28/24 08:50 Dose: 20 mg Hydroxyzine HCl (Hydroxyzine Hcl 25 Mg Tablet) 25 mg PO Q6H PRN PRN Reason: Anxiety Last Admin: 07/25/24 08:37 Dose: 25 mg Lorazepam (Lorazepam 0.5 Mg Tablet) 0.5 mg PO Q8H PRN PRN Reason: Anxiety Magnesium Hydroxide (Milk Of Magnesia 30 Ml Oral.Susp) 30 ml PO DAILY PRN PRN Reason: Constipation Melatonin (Melatonin 3 Mg Tablet) 3 mg PO BEDTIME PRN PRN Reason: Insomnia Nicotine Polacrilex (Nicotine Polacrilex 2 Mg Gum) 2 mg BUCCAL Q2H PRN PRN Reason: Nicotine Cravings Oxcarbazepine (Oxcarbazepine 300 Mg Tablet) 300 mg PO BID [facility] Last Admin: 07/28/24 08:50 Dose: 300 mg Trazodone HCl (Trazodone Hcl 50 Mg Tablet) 50 mg PO BEDTIME MRX1 [facility] Last Admin: 07/28/24 01:49 Dose: Not Given Allergies Allergies Allergy/AdvReac Type Severity Reaction Status Date / Time mussels Allergy Severe Anaphylaxis Verified 07/23/24 12:58 shellfish derived Allergy Severe Anaphylaxis Verified 07/23/24 12:58 shrimp Allergy Severe Anaphylaxis Verified 07/23/24 12:58 Assessment & Plan Assessment & Plan (1) MDD (major depressive disorder), recurrent episode, severe: Status: Acute Code(s): F33.2 - Major depressive disorder, recurrent severe without psychotic features (2) MARY ALICE (generalized anxiety disorder): Status: Acute Code(s): F41.1 - Generalized anxiety disorder (3) PTSD (post-traumatic stress disorder): Status: Acute Code(s): F43.10 - Post-traumatic stress disorder, unspecified Plan Patient is a 23-year-old female with history of MDD, MARY ALICE and PTSD who presented to [facility] via ambulance from [facility] due to suicidal ideation secondary to life stressors. Plan: CV 15 minute safety checks obtain collateral encourage groups start: Prozac 20mg PO daily referral to outpatient psychiatric prescriber discharge planning 07/25/24: Trileptal 300 mg bid Lorazepam prn for panic 07/26/24 not having panic- feels trileptal helping no side effects- understands it is a mood stabilizer- Patient educated on: medication risk/benefits and therapeutic strategies 07/27- continue current plan- tolerating medications- work on discharge planning upcoming week - 07/28- meeting with pt and boyfriend on 07/29 discharge 07/30. Patient educated on: medication risk/benefits and therapeutic strategies Informed Consent: understands Reason for continued inpatient stay Substantial Risk for: rapid decompensation Time Spent With Patient Time: Total time managing care of this patient today ____ minutes.
[2024-07-28 20:00] VITALS: BP 120/60; PULSE 68; RESP 17; TEMP 36.8; O2SAT 98
[2024-07-28] MEDS: traZODone HCL 50 MG TABLET PO (21:06)
[2024-07-29 08:00] VITALS: BP 116/56; PULSE 69; RESP 18; TEMP 37.4; O2SAT 98
[2024-07-29] MEDS: OXcarbazepine 300 MG TABLET PO ×2 (08:31→21:20)
[2024-07-29] MEDS: FLUoxetine HCl 20 MG CAPSULE PO (08:32)
[2024-07-29] MEDS: Acetaminophen 325 MG TABLET 650 MG PO (12:16)
--- NOTE | 2024-07-29 17:49 | P.PNPSI_ITS ---
Subjective Subjective Date of Service: 07/29/24 Reason For Visit: SI Subjective Notes: Conditional Voluntary Healthcare Proxy: No Guardianship: No Medical Problems Affecting Mental Status: No Interim History: Met with pt and boyfriend. Addressed questions about plan of care and medications, purpose, side effects. Boyfriend is very supportive of pt, but anxious as he has had two family members suicide. Pt discussed resolution of suicidality, mgt of stressors-grades, issues with her sister, risk of deportation with new political administration. Boyfriend asking how he may be a support. Medication Compliance: Yes Side effects from medications: No Attending Groups: Yes Review of Systems Acute medical concerns: No Medical Review of Systems: unchanged Review of Systems Review of Systems intermittent stress headaches relieved with tylenol Mental Status Exam Mental Status Exam Narrative: Alert, oriented, articulate. Affect and mood with mild apprehension and cheerfulness No sx of thought process or content dysfunction Denies SI/HI/AH/VH Diagnostics Vital Signs (24Hr): Vital Signs - 24 hr 07/28/24 20:00 07/29/24 08:00 Temperature 98.2 F 99.4 F Pulse Rate 68 69 Respiratory Rate 17 18 Blood Pressure 120/60 116/56 L Pulse Oximetry 98 98 Oxygen Delivery Method Room Air Room Air BMI result Body Mass Index 29.9 Labs 07/23/24 13:24 07/24/24 11:26 Medications Medications Current Medications Acetaminophen (Acetaminophen 325 Mg Tablet) 650 mg PO Q6H PRN PRN Reason: Headache/Pain Mild Scale (1-3) Last Admin: 07/29/24 12:16 Dose: 650 mg Al Hydroxide/Mg Hydroxide (Magnesium Hydrox/Alum Hydrox 30 Ml Oral.Susp) 30 ml PO Q6H PRN PRN Reason: Heartburn/Nausea Fluoxetine HCl (Fluoxetine Hcl 20 Mg Capsule) 20 mg PO DAILY ANA Last Admin: 07/29/24 08:32 Dose: 20 mg Hydroxyzine HCl (Hydroxyzine Hcl 25 Mg Tablet) 25 mg PO Q6H PRN PRN Reason: Anxiety Last Admin: 07/25/24 08:37 Dose: 25 mg Lorazepam (Lorazepam 0.5 Mg Tablet) 0.5 mg PO Q8H PRN PRN Reason: Anxiety Magnesium Hydroxide (Milk Of Magnesia 30 Ml Oral.Susp) 30 ml PO DAILY PRN PRN Reason: Constipation Melatonin (Melatonin 3 Mg Tablet) 3 mg PO BEDTIME PRN PRN Reason: Insomnia Nicotine Polacrilex (Nicotine Polacrilex 2 Mg Gum) 2 mg BUCCAL Q2H PRN PRN Reason: Nicotine Cravings Oxcarbazepine (Oxcarbazepine 300 Mg Tablet) 300 mg PO BID [facility] Last Admin: 07/29/24 08:31 Dose: 300 mg Trazodone HCl (Trazodone Hcl 50 Mg Tablet) 50 mg PO BEDTIME MRX1 [facility] Last Admin: 07/29/24 06:41 Dose: Not Given Allergies Allergies Allergy/AdvReac Type Severity Reaction Status Date / Time mussels Allergy Severe Anaphylaxis Verified 07/23/24 12:58 shellfish derived Allergy Severe Anaphylaxis Verified 07/23/24 12:58 shrimp Allergy Severe Anaphylaxis Verified 07/23/24 12:58 Assessment & Plan Assessment & Plan (1) MDD (major depressive disorder), recurrent episode, severe: Status: Acute Code(s): F33.2 - Major depressive disorder, recurrent severe without psychotic features (2) MARY ALICE (generalized anxiety disorder): Status: Acute Code(s): F41.1 - Generalized anxiety disorder (3) PTSD (post-traumatic stress disorder): Status: Acute Code(s): F43.10 - Post-traumatic stress disorder, unspecified Plan Patient is a 23-year-old female with history of MDD, MARY ALICE and PTSD who presented to [facility] via ambulance from [facility] due to suicidal ideation secondary to life stressors. Plan: CV 15 minute safety checks obtain collateral encourage groups start: Prozac 20mg PO daily referral to outpatient psychiatric prescriber discharge planning 07/25/24: Trileptal 300 mg bid Lorazepam prn for panic 07/26/24 not having panic- feels trileptal helping no side effects- understands it is a mood stabilizer- Patient educated on: medication risk/benefits and therapeutic strategies 07/27- continue current plan- tolerating medications- work on discharge planning upcoming week - 07/29- Discharge 07/30/24. Reason for continued inpatient stay Substantial Risk for: stable for discharge Time Spent With Patient Time: Total time managing care of this patient today ____ minutes.
[2024-07-29 20:00] VITALS: BP 122/62; PULSE 72; RESP 16; TEMP 37; O2SAT 98
[2024-07-29] MEDS: traZODone HCL 50 MG TABLET PO (21:20)
[2024-07-30 08:00] VITALS: BP 125/64; PULSE 74; RESP 16; TEMP 37.9; O2SAT 98
[2024-07-30] MEDS: FLUoxetine HCl 20 MG CAPSULE PO (08:53)
[2024-07-30] MEDS: OXcarbazepine 300 MG TABLET PO (08:54)
[2024-07-30] MEDS: Acetaminophen 325 MG TABLET 650 MG PO (08:56)
--- NOTE | 2024-08-04 03:18 | P.DS_ITS ---
DS: Providers Provider Date of Service: 07/30/24 Date of admission: 07/23/24 18:56 Date of discharge: 07/30/24 Primary care physician: Unknown Physician Admitting clinician: Hayley Ballesteros Attending physician on admission: Keny Adams Consults: 07/24/24 04:55 Addiction Medicine Routine Consulting Provider: Addiction Covering Reason for consultation: Positive Alcohol screen Attending physician on discharge: Keny Adams Discharging clinician: Georgina Hightower DS: Diagnosis Discharge Diagnosis (1) MDD (major depressive disorder), recurrent episode, severe: Status: Acute (2) MARY ALICE (generalized anxiety disorder): Status: Acute (3) PTSD (post-traumatic stress disorder): Status: Acute DS: Medications Discharge Medications Home Medications: Home Medications ?Medication ?Instructions ?Recorded ?Confirmed No Known Home Meds 07/23/24 07/23/24 Previous Rx's ?Medication ?Instructions ?Recorded fluoxetine 20 mg capsule 20 mg PO DAILY #30 caps 07/29/24 hydroxyzine HCl 25 mg tablet 25 mg PO Q6H PRN Anxiety #60 tabs 07/29/24 melatonin 3 mg tablet 3 mg PO BEDTIME PRN Insomnia #30 07/29/24 tabs oxcarbazepine 300 mg tablet 300 mg PO BID #60 tabs 07/29/24 trazodone 50 mg tablet 50 mg PO BEDTIME MRX1 #60 tabs 07/29/24 Mental Status Exam Mental Status Exam Narrative: Alert, oriented, articulate. Affect and mood with mild apprehension and cheerfulness No sx of thought process or content dysfunction Denies SI/HI/AH/VH DS: Summary Hospital Course Hospital Course: Admission to adult psychiatry for exacerbation of PTSD, MARY ALICE, Recurrent Major Depression with SI, SIBS. Pt is a student of [email or web address]. She identifies precipitants as concern about her grades which are good, however her goal is straight A's, conflict with her sister over sister's recent actions with a new partner and concerns about her and family being deported. She has a court date in Sep 2023 to state her case. Medications were evaluated and adjusted. Pt was able to utilize the milieu for strengthening coping skills and for additional support. Her college family, family of origin and partner were all strong supports during her admission. She will return to the family home for the and return to her college course work next week, along with out patient therapy and psychiatry. Status at Discharge Functional status at discharge: independent ambulation Overall status at discharge: patient is progressing back to baseline Time Spent with Patient Time attestation: Total time managing care of this patient today ____ minutes. Time spent: Less than 30 minutes Discharge Plan Discharge Anticipated Discharge Date/Time: 07/30/24 12:00 Patient Disposition: Home, Self-Care Discharge Diagnosis: PTSD Recurrent Major Depression Generalized Anxiety Disorder Referrals: [facility]: Deisy Tubbs (Clinician) [Other] - 08/05/24 11:00 am (Hospital discharge appointment with counselor at [facility] ) [facility]: Hermelinda Temple(psychiatry) [Other] - 08/11/24 11:00 am (Hospital Discharge Appointment Initial psychiatric evaluation for psychiatric medication management ) [facility] [Other] - 1 Week (You should call counseling center line to speak with a clinician if you find yourself struggling over the break (07/30/24-08/04/24) and you will be able to speak with a clinician. ) Physician,Unknown J [Primary Care Provider] - 1 Week Discharge Medications: New trazodone 50 mg Tablet 50 mg PO BEDTIME MRX1 Qty: 60 0RF oxcarbazepine 300 mg Tablet 300 mg PO BID Qty: 60 0RF melatonin 3 mg Tablet 3 mg PO BEDTIME PRN (Reason: Insomnia) Qty: 30 0RF hydroxyzine HCl 25 mg Tablet 25 mg PO Q6H PRN (Reason: Anxiety) Qty: 60 0RF fluoxetine 20 mg Capsule 20 mg PO DAILY Qty: 30 0RF No Action No Known Home Meds Discharge Orders: Discharge Order (Routine); Ordered 07/30/24 Ordered By: Georgina Hightower Diet: Advance to usual diet Activity on Discharge: As tolerated Stand Alone Forms: Patient Portal Discharge page, Community Support Print Language: Portuguese Care Plan Goals: Mood and Behavioral Stabilization Health Concerns: Mood and Behavioral Stabilization Plan of Treatment: Attend scheduled appointments Take medications as directed Assessment: No SI/HI/AH/VH No sx of psychosis or vika Shruti feeling prepared to discharge to family home and return to classes next week. Discharge Date/Time: 07/30/24 11:03
== END 2024-07-30 11:03 | disposition home or self-care (01) | DRG 751 ==
LOC: HO.ED 14:00 → HO.PM5 19:05
PROVIDERS: Admitting Provider Psychiatry & Neurology Psychiatry; Emergency Provider Emergency Medicine; Visit Provider Clinical Nurse Specialist Psychiatric/Mental Health, Adult
DX: F33.2 Major depressive disorder, recurrent severe without psychotic features (principal); R45.851 Suicidal ideations; F41.1 Generalized anxiety disorder; F43.10 Post-traumatic stress disorder, unspecified; Z91.52 Personal history of nonsuicidal self-harm
CPT/HCPCS: 36415; 80053; 80061; 80307; 81003; 81025; 84443; 85025; 99285; S9485

== ENCOUNTER → 2024-07-23 18:56 | Outpatient (BNV) | payer BC, SELFPAY | PROVIDERS: Admitting Provider Psychiatry & Neurology Psychiatry; Emergency Provider Emergency Medicine; Visit Provider Clinical Nurse Specialist Psychiatric/Mental Health, Adult | DX: F33.2 Major depressive disorder, recurrent severe without psychotic features (principal); F41.1 Generalized anxiety disorder; F43.11 Post-traumatic stress disorder, acute | CPT/HCPCS: 90792; 99231; 99232; 99238 ==